=== PATIENT | male | born 1965 | race Two or more races ===

== ENCOUNTER 2023-08-30 17:26 | Emergency (ER) | payer OTHER ==
[2023-08-30] MEDS: Diphtheria,Pertussis(Acell),Tetanus Vaccine 0.5 ML Syringe IM ONE (17:51)
[2023-08-30] MEDS: Bacitracin/Neomycin/Polymyxin B Oint 0.9 GM U/D Packet ONE (17:51)
[2023-08-30] MEDS: Lidocaine 1% 5 ML VIAL ONE (17:56)
[2023-08-30] MEDS: Lidocaine 1% 5 ML VIAL INJECT ONE (17:56)
[2023-08-30] MEDS: Bacitracin/Neomycin/Polymyxin B Oint 0.9 GM U/D Packet TOP ONE (18:02)
[2023-08-30] MEDS: Cephalexin 250 MG Cap PO ONE (18:31)
== END 2023-08-30 18:43 | disposition home or self-care (01) ==
LOC: KA.ED 17:26
DX: S61.012A Laceration without foreign body of left thumb without damage to nail, initial encounter (principal); W31.1XXA Contact with metalworking machines, initial encounter
CPT/HCPCS: 12001; 90471; 90715; 99282-25; 99283; A9270-GY; J3490